=== PATIENT | male | born 1970 | race Caucasian/White ===

== ENCOUNTER 2021-06-29 08:00 | Outpatient (CLI) | payer OTHER | END 2021-06-29 23:59 | LOC: LAB.N 08:00 | PROVIDERS: ATTEND Nurse Practitioner | DX: L03.031 Cellulitis of right toe (principal) | CPT/HCPCS: 87070; 87205 ==

== ENCOUNTER 2024-02-08 13:56 | Emergency (ER) | payer MEDICARE, OTHER ==
[2024-02-08 14:09] VITALS: BP 123/87; O2SAT 99
--- NOTE | 2024-02-08 14:26 | ED Physician Documentation ---
PD HPI WOUND RECHECK - Stated complaint Stated Complaint: DOG BITE R BITE - Chief complaint Chief Complaint: Wound - Histroy obtained from History obtained from: Patient - Additional information Additional information: He has a history of CHF but no ACS or CAD. He does not know why he has a history of CHF. He presents today with numerous complaints. The main 1 is a dog bite to his right hand. He is up-to-date on tetanus. He was bitten about a week ago over the right thumb. This happened in [place]. He did confirm that the dog was up-to-date on rabies vaccinations. Ancillary complaints include intermittent very brief seconds long chest pain that are not exertional, bug bites all over his body is from a variety of fleas, chiggers, ticks, and bedbugs that he received in a variety of states ranging from [place] to [place] to [place] to [place]. He was seen at an urgent care and prescribed Claritin and triamcinolone cream which have not been helpful. He is up-to-date on tetanus. PD PAST MEDICAL HISTORY - Past Medical History Cardiovascular: Congestive heart failure, Atrial fibrillation, Other Respiratory: None - Past Surgical History Past Surgical History: Yes Cardiovascular: AICD - Present Medications Home Medications: Ambulatory Orders Medication Instructions Recorded Confirmed Aspirin [Aspir 81] 81 mg PO DAILY 09/09/13 01/08/15 Candesartan Cilexetil [Atacand] 2 mg PO HS 09/09/13 01/08/15 Furosemide [Lasix] 20 mg PO 09/09/13 01/08/15 HYDROcod/ACETAM 5/325 [Vicodin 1 - 2 ea PO Q6H PRN #15 tablet 09/09/13 01/08/15 5/325] Spironolactone [Aldactone] 12.5 mg PO DAILY 09/09/13 01/08/15 carvediloL [Coreg] 3.125 mg PO TID 09/09/13 01/08/15 Hydrocodone/Acetaminophen 1 - 2 each PO Q6H PRN #15 tablet 01/08/15 [Hydrocodon-Acetaminophen 5-325] Doxepin [SINEquan] 10 mg PO TID PRN #30 cap 02/08/24 Doxycycline [Vibramycin] 100 mg PO BID #14 tablet 02/08/24 - Allergies Allergies/Adverse Reactions: Allergies Allergy/AdvReac Type Severity Reaction Status Date / Time gentamicin [Gentamicin] Allergy Unknown Verified 02/08/24 14:50 - Social History Does the pt smoke?: No Smoking Status: Never smoker Does the pt drink ETOH?: No Does the pt have substance abuse?: No - Immunizations Immunizations are current?: Yes Immunizations: TDAP >10years/unknown - POLST Patient has POLST: No PD ED PE NORMAL - Vitals Vital signs reviewed: Yes - General General: Alert and oriented X 3, No acute distress - HEENT HEENT: PERRL, EOMI - Neck Neck: Supple, no meningeal sign, No bony TTP - Cardiac Cardiac: RRR, No murmur - Respiratory Respiratory: No respiratory distress, Clear bilaterally - Extremities Extremities: Other (Multiple noninfected bug bites on the trunk and legs, most marked on the left buttock. No signs of superinfection. There is a animal bite over the first MCP of the right hand with mild signs of cellulitis and infection which was cultured.) - Neuro Neuro: Alert and oriented X 3, Normal speech Results - Vitals Vitals: Vital Signs - 24 hr 02/08/24 14:02 Temperature 36.5 C Heart Rate 80 Respiratory 16 Rate Blood Pressure 123/87 H O2 Saturation 99 Oxygen O2 Source Room air - EKG (time done) 1438 EKG releavant findings:: EKG personally interpreted by author of this note. Relevant findings are: Rate: Rate (enter#) (67) Rhythm: NSR Elizabeth: Normal Intervals: Normal [place] QRS: Normal Ischemia: Normal ST segments PD Medical Decision Making - ED course ED course: 54-year-old gentleman presents with multiple complaints. 1. About a week old dog bite on the right hand with mild signs of infection. No sign of bony infection or tenderness. He is up-to-date on tetanus and he confirmed that the dog was up-to-date on rabies. Given the concomitant need to cover for Lyme disease given his tick bites will cover with doxycycline pending wound culture. 2. Multiple bug bites of different types from different states. His main complaint is itching. He is already tried permethrin for scabies. Will prescribe doxepin and cover for Lyme with doxycycline. 3. Very atypical chest pain. Last only seconds at a time, nonexertional. Will check EKG. Departure - Departure Disposition: 01 Home, Self Care Clinical Impression: Animal bite with open wound Chest pain Qualifiers: Chest pain type: unspecified Qualified Code(s): R07.9 - Chest pain, unspecified Bug bites Qualifiers: Encounter type: initial encounter Qualified Code(s): W57.XXXA - Bitten or stung by nonvenomous insect and other nonvenomous arthropods, initial encounter Condition: Good Record reviewed to determine appropriate education?: Yes Instructions: ED Bite Animal General, ED Chest Pain Atypical Unkn Cause Prescriptions: Doxepin [SINEquan] 10 mg PO TID PRN #30 cap PRN Reason: Itching Doxycycline [Vibramycin] 100 mg PO BID #14 tablet Comments: Regarding the issues you are here for today: 1. As far as the chest pain, it certainly does not sound like serious chest pain from your heart and your EKG is normal. Follow-up with your primary care physician, next available appointment for further evaluation and treatment for this. Return for new or worsening symptoms regarding that. 2. For the multiple bug bites. I am treating you with doxycycline given the concern for Lyme disease given that some of the bugs you were bitten by may have been ticks. I am prescribing something for the itching as well. The anti-itch medication is a little bit sedating so do not drink or drive with it. Think of it is a super Benadryl. 3. Regarding the dog bite. You seem confident that the dog is fully immunized against rabies which is good and you tell me that you have had a tetanus shot in the last 10 years, also good. The doxycycline should be decent coverage for dog bite infection. We are performing a wound culture, the results should be done in 48-72 hours. If antibiotic change is necessary we will call you. Return if worse in the meantime, especially if you develop increased pain, fevers, cannot keep down the medication. Otherwise follow-up with your physician in approximately 2-3 days. Forms: PCP List
[2024-02-08] MEDS: DOXYCYCLINE 100 MG TABLET PO STA (14:44)
== END 2024-02-08 14:58 | disposition home or self-care (01) ==
LOC: ED 13:56
DX: S61.451A Open bite of right hand, initial encounter (principal); L08.9 Local infection of the skin and subcutaneous tissue, unspecified; W54.0XXA Bitten by dog, initial encounter; R07.89 Other chest pain; S30.861A Insect bite (nonvenomous) of abdominal wall, initial encounter; S80.862A Insect bite (nonvenomous), left lower leg, initial encounter; S80.861A Insect bite (nonvenomous), right lower leg, initial encounter; S30.860A Insect bite (nonvenomous) of lower back and pelvis, initial encounter; W57.XXXA Bitten or stung by nonvenomous insect and other nonvenomous arthropods, initial encounter
CPT/HCPCS: 93005; 99283; 99284; A9270